=== PATIENT | female | born 1990 | race Caucasian/White ===

== ENCOUNTER 2021-12-15 13:37 | Emergency (ER) | payer SELFPAY ==
[2021-12-15 13:51] VITALS: BP 106/64; PULSE 92; RESP 18; TEMP 36.8; O2SAT 100
--- NOTE | 2021-12-15 14:02 | ED.URI ---
HPI - URI/Sore Throat General Chief Complaint: Upper Respiratory Infection Stated Complaint: Sore Throat,Fatigue Time Seen by Provider: 12/15/21 14:00 History of Present Illness HPI Narrative: Yaneli Santiago is a 31 yo female with no PMH who comes to [facility] with fatigue and sore throat for the last 4 to 5 days; states has been fatigued and has a sore throat, nasal stiff around her neck and complaining of lymph node pain in her left arm but not behind her neck. Patient has had mono before and states that she developed more fatigue and lumbar pain with her lymph nodes that she is now. She also states her tonsils have a little white dots all over them Related Data Allergies Allergy/AdvReac Type Severity Reaction Status Date / Time No Known Allergies Allergy Verified 12/15/21 14:00 Review of Systems Review of Systems: CONSTITUTIONAL: Denies fever, chills, sweats. Complaining of fatigue EYES: Denies visual changes, redness, discharge. ENT: Denies rhinorrhea, congestion, has sore throat, otalgia. CARDIOVASCULAR: Denies chest pain, palpitations, edema. RESPIRATORY: Denies dyspnea, wheezing, cough GASTROINTESTINAL: Denies abdominal pain, nausea, vomiting, diarrhea. GENITOURINARY: Denies dysuria, hematuria, abnormal discharge SKIN: Denies rash or itching. NEUROLOGIC: Denies numbness, or focal weakness. PSYCHIATRIC: Denies anxiety or depression. PMFSH Past Medical History Medical History Mononucleosis Social History Social History (Updated 12/15/21 @ 14:26 by Marilia Mendoza CNP) Smoking status: Never smoker Alcohol intake: never Comments At time of signature, I agree with nursing past medical, surgical, social and family history. There is no relevant family history pertinent to the presenting complaint. Exam Narrative: GENERAL: This is a well-nourished, well-developed patient, in mild distress. HEAD: normocephalic, atraumatic. EYES: . Sclera clear/white. Vision is grossly intact. EARS: External ears normal, auditory canals erythema and without drainage, TMs normal without perforation. Hearing grossly intact. NOSE: External nose normal without nasal discharge, nares without redness, no rhinorrhea. THROAT: Mucous membranes moist, posterior pharynx bilateral edema of tonsils with erythema and white pockets of pus NECK: Neck supple, mild tender CARDIOVASCULAR: Regular rate and rhythm without murmurs, gallops, or rubs. RESPIRATORY: Clear to auscultation. Breath sounds equal bilaterally. No wheezes, rales, or rhonchi. GASTROINTESTINAL: Not done SKIN: warm, intact with no suspicious lesions or rash, good texture and turgor. NEURO: awake, alert, and oriented to person, place and time. There were no obvious focal neurologic abnormalities. Steady gait EXTREMITIES: Normal range of motion. BACK: Nontender without deformity Course Course Emergency Course: Patient here with complaints of sore throat and fatigue-states that she has been ill since last week and that has been very tired and hours throat is gotten progressively more sore and swollen Strep test negative, culture sent Hartley test done- negative Started on amoxicillin 875 twice daily and is to push fluids patient will discuss Level of Care: Express Care Visit Vital Signs Vital signs: Vital Signs Temperature 98.3 F 12/15/21 13:51 Pulse Rate 92 12/15/21 13:51 Respiratory Rate 18 12/15/21 13:51 Blood Pressure 106/64 12/15/21 13:51 Pulse Oximetry 100 12/15/21 13:51 Oxygen Delivery Room Air 12/15/21 13:51 Temperature 98.3 F 12/15/21 13:51 Pulse Rate 92 12/15/21 13:51 Respiratory Rate 18 12/15/21 13:51 Blood Pressure 106/64 12/15/21 13:51 Pulse Oximetry 100 12/15/21 13:51 Oxygen Delivery Room Air 12/15/21 13:51 MDM - URI/Sore Throat Differential Diagnosis Differential diagnosis: Likely upper respiratory infection, viral infection, bronchitis, pharyngit
== END 2021-12-15 14:34 | disposition home or self-care (01) ==
PROVIDERS: Emergency Provider Nurse Practitioner; PCP Family Medicine
DX: J02.9 Acute pharyngitis, unspecified (principal)
CPT/HCPCS: 36416; 86308; 87081; 87880; 99213; G0463

== ENCOUNTER 2021-12-21 12:55 | Emergency (ER) | payer OTHER, SELFPAY ==
[2021-12-21 13:28] VITALS: BP 93/59; PULSE 84; RESP 18; TEMP 36.8; O2SAT 100
--- NOTE | 2021-12-21 14:05 | ED.GENADULT ---
HPI - General Adult General Chief complaint: Skin/Abscess/Foreign Body Stated complaint: rash History of Present Illness HPI narrative: Patient is a 31-year-old female who [facility] for evaluation of a rash that she noticed today. Additionally, she reports rash is erythematous and mildly pruritic. Denies taking OTC meds for symptoms. Of note, patient reports she is on day 6 of amoxicillin. She is currently as being treated for strep throat. Related Data Allergies Allergy/AdvReac Type Severity Reaction Status Date / Time amoxicillin [From Amoxil] Allergy Rash Verified 12/21/21 13:42 Review of Systems Review of Systems: Denies recent/new changes in soaps, perfumes, lotions, detergents, and shampoos. Denies working with chemicals. Denies new or changes in medications/foods. Pertinent negatives fever, chills, sweats, change in appetite, malaise, poor p.o. intake, recent weight loss, change in appetite, myalgias, lymphadenopathy, LOC, dizziness, burning sensation, petechiae, blistering, swelling, streaking, warmth, lesions, easy bruising, lip/tongue/throat swelling, facial swelling, abdominal pain, nausea, vomiting, numbness, tingling, loss of sensation, cough, wheezing, chest pain, and heart palpitations/murmurs. PMFSH Past Medical History Medical History Mononucleosis Social History Social History Smoking status: Never smoker Alcohol intake: never Comments I have reviewed and agree with the patient's past medical, surgical, social, and family hx as documented by the RN. There is no relevant family history pertinent to the presenting complaint. Exam Narrative: GENERAL: Well-appearing, well-nourished, and in no acute distress. HEAD: Normocephalic, atraumatic. No facial swelling appreciated. EYES: PERRLA and EOMI. No evidence of erythema, swelling, or drainage. ENT: Nares clear, no rhinorrhea or epistaxis.Mucous membranes moist and pink. Uvula is midline without erythema and swelling. No evidence of obstruction, petechial rash, cobblestoning, lesions, ulcers, erythema, swelling, exudates, peritonsillar abscess, tenting, or drooling. Breath odor and voice normal. NECK: Supple. No Lymphadenopathy or nuchal rigidity appreciated. CHEST: Bilateral lung bhat are clear to auscultation. No respiratory distress. No evidence of cough or pleuritic cp upon examination. HEART: Regular rate and rhythm. No murmur, gallop, or rub heard. EXTREMITIES: Normal range of motion. No edema. SKIN: Warm, dry. Moderate generalized rash consistent with drug rash, skin is otherwise normal. No facial involvement. NEURO: No focal deficits. Alert and oriented x3. SPECIAL OBSERVATIONS: Smiling. Laughing. No evidence of discomfort. Course Course Level of Care: Express Care Visit Vital Signs Vital signs: Vital Signs Temperature 98.2 F 12/21/21 13:28 Pulse Rate 84 12/21/21 13:28 Respiratory Rate 18 12/21/21 13:28 Blood Pressure 93/59 L 12/21/21 13:28 Pulse Oximetry 100 12/21/21 13:28 Oxygen Delivery Room Air 12/21/21 13:28 Temperature 98.2 F 12/21/21 13:28 Pulse Rate 84 12/21/21 13:28 Respiratory Rate 18 12/21/21 13:28 Blood Pressure 93/59 L 12/21/21 13:28 Pulse Oximetry 100 12/21/21 13:28 Oxygen Delivery Room Air 12/21/21 13:28 Medical Decision Making Differential Diagnosis Differential Diagnosis: Contact/allergic dermatitis, atopic dermatitis, psoriasis, cellulitis, drug rash, tinea infection, parasite infection, shingles Vital Signs Vital Signs: Vital Signs Temperature 98.2 F 12/21/21 13:28 Pulse Rate 84 12/21/21 13:28 Respiratory Rate 18 12/21/21 13:28 Blood Pressure 93/59 L 12/21/21 13:28 Pulse Oximetry 100 12/21/21 13:28 Oxygen Delivery Room Air 12/21/21 13:28 Temperature 98.2 F 12/21/21 13:28 Pulse Rate
== END 2021-12-21 14:25 | disposition home or self-care (01) ==
PROVIDERS: Emergency Provider Nurse Practitioner Family; PCP Family Medicine
DX: L27.0 Generalized skin eruption due to drugs and medicaments taken internally (principal); T36.0X5A Adverse effect of penicillins, initial encounter
CPT/HCPCS: 99213; G0463